=== PATIENT | male | born 1990 | race Caucasian/White ===

== ENCOUNTER 2017-07-30 04:57 | Emergency (ER) | payer SELFPAY ==
[2017-07-30] MEDS ORDERED: LIDOCAINE HCL 2% (20ML MULTI-DOSE VIAL) NR ONE (05:25)
[2017-07-30] MEDS ORDERED: DIPHTH,PERTUSS(ACELL),TET 0.5 ML DISP.SYRIN IM ONE (05:29)
--- NOTE | 2017-07-30 05:29 | PDOC ---
History of Present Illness - General Stated Complaint: INJURY,RT HAND Time Seen by Provider: 07/30/17 05:08 History Source: Patient Exam Limitations: No Limitations - History of Present Illness Initial Comments: 07/30/17 05:25 This is a right hand dominant 27-year-old male without significant past medical history presents emergency Department with laceration to his right hand. Patient states he was at his apartment today when he was walking with a broken plate when he slipped and a causing him to lacerate his right hand. Past History - Past Medical History Allergies/Adverse Reactions: Allergies Allergy/AdvReac Type Severity Reaction Status Date / Time No Known Allergies Allergy Verified 07/30/17 05:33 Home Medications: Ambulatory Orders NK [No Known Home Medication] 07/30/17 Review of Systems - Review of Systems Able to Perform ROS?: Yes Is the patient limited Swedish proficient: No Constitutional: No: Symptoms Reported HEENTM: No: Symptoms Reported Respiratory: No: Symptoms reported Cardiac (ROS): No: Symptoms Reported ABD/GI: No: Symptoms Reported : No: Symptoms Reported Musculoskeletal: No: Symptoms Reported Integumentary: Yes: See HPI Neurological: No: Symptoms reported Endocrine: No: Symptoms Reported *Physical Exam - Physical Exam General Appearance: Yes: Appropriately Dressed. No: Apparent Distress HEENT: positive: Normal ENT Inspection Neck: positive: Trachea midline, Supple Respiratory/Chest: positive: Lungs Clear, Normal Breath Sounds. negative: Respiratory Distress, Accessory Muscle Use Cardiovascular: positive: Regular Rhythm, Regular Rate. negative: Murmur Gastrointestinal/Abdominal: positive: Normal Bowel Sounds, Soft. negative: Tender Musculoskeletal: positive: Normal Inspection Extremity: positive: Normal Capillary Refill, Normal Range of Motion, Other (4 cm curved laceration noted to the base of the right thumb) Integumentary: positive: Other (see extremity note) Neurologic: positive: Alert, Normal Response Procedures - Consent Consent obtained: Verbal, From Patient - Laceration/Wound Repair Right Dorsal 1st digit Wound Length: 2.6 to 5.0 cm Wound Explored: clean Wound's Depth, Shape: superficial, flap Irrigated w/ Saline: Yes Betadine Prep: Yes Anesthesia: 2% Lidocaine Amount of Anesthetic (ccs): 3 Wound Debrided: minimal Wound Repaired With: Sutures Suture Size/Type: 4:0 Number of Sutures: 5 Layer Closure: No Sterile Dressing Applied: No Splint Applied: No Progress: 07/30/17 06:01 Patient tolerated well. Medical Decision Making - Medical Decision Making 07/30/17 05:27 A/P: 27-year-old male without significant past medical history with laceration to the base of the right thumb 4 cm curved laceration noted to the base of the right thumb Full strength with flexion and extension of the thumb. Capillary refill less than 2 seconds distal to the injury Laceration repair-see note for details Tetanus shot Discharge 07/30/17 06:00 *DC/Admit/Observation/Transfer Diagnosis at time of Disposition: Laceration - Discharge Dispostion Disposition: HOME Condition at time of disposition: Fair Decision to Admit order: No - Referrals Referrals: ON STAFF,NOT [Primary Care Provider] - - Patient Instructions Printed Discharge Instructions: DI for Laceration Repair Additional Instructions: Keep wound clean and dry Avoid strenuous activity/exercise to create a hot or sweaty environment until sutures are removed Reapply bacitracin ointment 2 times a day until sutures are removed Return to emergency Department or private physician in 5-7 days for suture removal May use Tylenol or Motrin for pain relief Return immediately to emergency department for redness, swelling, pain, or signs of infection Mantenga la herida limpia y seca Evite la actividad extenuante / ejercicio para crear un ambiente caliente o sudoroso hasta que se eliminen las suturas Vuelva a aplicar la pomada de bacitracina 2 veces al da hasta que se eliminen las suturas Regrese al departamento de emergencia o a un mdico privado en 5-7 pickard para retirar la sutura Puede usar Tylenol o Motrin para aliviar el dolor Regrese inmediatamente al departamento de emergencia para mirza si hay enrojecimiento, hinchazn, dolor o signos de infeccin. Print Language: GUINEAN - Post Discharge Activity
[2017-07-30 05:33] VITALS: BP 151/72; PULSE 76; TEMP 97.7; BMI 34.8
--- NOTE | 2017-07-30 05:58 | PDOC ---
*Physical Exam - Vital Signs Last Vital Signs Temp Pulse Resp BP Pulse Ox 97.7 F 76 19 151/72 98 07/30/17 05:29 07/30/17 05:29 07/30/17 05:29 07/30/17 05:29 07/30/17 05:29 ED Treatment Course - Medications Given in the ED: ED Medications Discontinued Medications Generic Name Dose Route Start Last Admin Trade Name Freq PRN Reason Stop Dose Admin Diphtheria/Tetanus/Acell Pertussis 0.5 ml 07/30/17 05:29 07/30/17 05:41 Boostrix - IM 07/30/17 05:30 0.5 ml .ONCE ONE Administration Medical Decision Making - Medical Decision Making 07/30/17 05:57 agree with care from MIKA Quinonez *DC/Admit/Observation/Transfer Diagnosis at time of Disposition: Laceration - Discharge Dispostion Disposition: HOME Condition at time of disposition: Fair - Referrals Referrals: ON STAFF,NOT [Primary Care Provider] - - Patient Instructions Printed Discharge Instructions: DI for Laceration Repair Additional Instructions: Keep wound clean and dry Avoid strenuous activity/exercise to create a hot or sweaty environment until sutures are removed Reapply bacitracin ointment 2 times a day until sutures are removed Return to emergency Department or private physician in 5-7 days for suture removal May use Tylenol or Motrin for pain relief Return immediately to emergency department for redness, swelling, pain, or signs of infection Mantenga la herida limpia y seca Evite la actividad extenuante / ejercicio para crear un ambiente caliente o sudoroso hasta que se eliminen las suturas Vuelva a aplicar la pomada de bacitracina 2 veces al da hasta que se eliminen las suturas Regrese al departamento de emergencia o a un mdico privado en 5-7 pickard para retirar la sutura Puede usar Tylenol o Motrin para aliviar el dolor Regrese inmediatamente al departamento de emergencia para mirza si hay enrojecimiento, hinchazn, dolor o signos de infeccin. Print Language: [email or web address] - Post Discharge Activity
== END 2017-07-30 06:15 | disposition home or self-care (01) ==
LOC: JER 04:57
PROC: 0HQFXZZ Repair Right Hand Skin, External Approach (ICD-10-PCS; principal; 2017-07-30)
PROC: 3E0234Z Introduction of Serum, Toxoid and Vaccine into Muscle, Percutaneous Approach (ICD-10-PCS; 2017-07-30)
DX: S61.011A Laceration without foreign body of right thumb without damage to nail, initial encounter (principal); W01.110A Fall on same level from slipping, tripping and stumbling with subsequent striking against sharp glass, initial encounter; Y93.89 Activity, other specified; Y92.038 Other place in apartment as the place of occurrence of the external cause; Y99.8 Other external cause status
CPT/HCPCS: 90715; 99281-25